=== PATIENT | female | born 1950 | race Caucasian/White ===

== ENCOUNTER 2018-03-29 06:20 | Day surgery (SDC) | payer BC, OTHER ==
[~2018-03-29 06:20] MED LIST: DEXAMETHASONE SOD PHOSPHATE 10 MG INJ EPI ONE
[2018-03-29] MEDS ORDERED: DEXAMETHASONE SOD PHOSPHATE 10 MG INJ IV ONE (06:21)
[2018-03-29] MEDS ORDERED: PROPOFOL 200 MG/20 ML BOTTLE IV ONE (06:21)
[2018-03-29] MEDS ORDERED: IV NORMAL SALINE 1000 ML BAG IV ONE (06:21)
[2018-03-29] MEDS ORDERED: IOHEXOL-240 MG , 50 ML VIAL IV ONE (06:59)
[2018-03-29] MEDS ORDERED: BUPIVACAINE PF 0.5% 30 ML VIAL ONE (06:59)
[2018-03-29] MEDS ORDERED: MIDAZOLAM HCL 2 MG/2 ML VIAL ONE (07:04)
[2018-03-29] MEDS ORDERED: FENTANYL CITRATE 100 MCG/2 ML AMPUL ONE (07:05)
== END 2018-03-29 09:00 | disposition home or self-care (01) ==
LOC: DS 06:20
PROVIDERS: ATTEND Anesthesiology
DX: M53.3 Sacrococcygeal disorders, not elsewhere classified (principal); M76.30 Iliotibial band syndrome, unspecified leg; M47.897 Other spondylosis, lumbosacral region; M79.605 Pain in left leg; M79.604 Pain in right leg; M19.90 Unspecified osteoarthritis, unspecified site; K21.9 Gastro-esophageal reflux disease without esophagitis; I10 Essential (primary) hypertension; E78.5 Hyperlipidemia, unspecified; Z98.42 Cataract extraction status, left eye; Z98.41 Cataract extraction status, right eye; F15.90 Other stimulant use, unspecified, uncomplicated; Z98.890 Other specified postprocedural states
CPT/HCPCS: 20550; 27096; 71045; 76000; 93005; A4663; J1100 ×2; J2250; J3010; J3490 ×2; J7030; J7120; Q9966

== ENCOUNTER 2020-08-23 15:16 | Inpatient (IN) | payer BC, OTHER ==
[~2020-08-23] VITALS: Ht 152.4 cm; Wt 89.4 kg
[2020-08-23] MEDS ORDERED: Z GUARD REMEDY PASTE 57 GM TUBE TOP PRN (21:00)
[2020-08-23 21:17] VITALS: BP 142/54
[2020-08-23] MEDS ORDERED: TRAM50TA2 PO (22:40)
[2020-08-23] MEDS ORDERED: METO-357 PO (22:40)
[2020-08-23] MEDS ORDERED: HYDR-4209 PO (22:40)
[2020-08-23] MEDS ORDERED: POTA10CA43 PO (22:40)
[2020-08-23] MEDS ORDERED: PANT40TA49 PO (22:40)
[2020-08-23] MEDS ORDERED: MONT10TA33 PO (22:40)
[2020-08-23] MEDS ORDERED: SIMV-46 PO (22:40)
[2020-08-23] MEDS ORDERED: TOPI50TA24 PO (22:40)
[2020-08-23] MEDS ORDERED: MAGN500P40 PO (22:40)
[2020-08-23] MEDS ORDERED: MAG355OR18 PO (22:40)
[2020-08-23] MEDS ORDERED: ACET325C7 PO (22:40)
[2020-08-23] MEDS ORDERED: GABA-532 PO (22:40)
[2020-08-23] MEDS ORDERED: LEVO500T90 PO (22:46)
--- NOTE | 2020-08-23 23:00 | NUR ---
Received a 69 yr old female from [facility] to ARU with admitting diagnosis UTI,SEPSIS. AAOx4, able to make needs known. Needs attended. NO SOB noted on RA saturating 98%. Pt is ambulatory, BRP with standby assist. Skin assessment completed, skin intact, no issues noted. No acute distress noted at this moment. Denies any pain/discomfort. Belongings list completed and placed in chart. Oriented pt to the room. Safety measures in place. Dr Bennett aware of patient's admission and he said he will reconcile meds. Dr Story also made aware of patient's admission. Continue with plan of care.
[2020-08-23] MEDS ORDERED: HYDROCODONE/APAP 5-325MG TABLET PO PRN (23:15)
[2020-08-24] MEDS: TRAMADOL HCL 50 MG TABLET PO PRN ×2 (01:11→20:33)
[2020-08-24] MEDS: SIMVASTATIN 20 MG TABLET PO SCH ×2 (01:57→20:19)
[2020-08-24] MEDS ORDERED: SIMVASTATIN 20 MG TABLET ONE (02:00)
--- NOTE | 2020-08-24 02:01 | NUR ---
PT. REQUESTED PM [facility] NOTIFIED MISSIONARY COORDINATOR ADMINISTERED OFF SCHEDULE.
--- NOTE | 2020-08-24 03:00 | NUR ---
Patient c/o lower back pain at 0111, reposition and administer PRN pain meds Tramadol 50 mg prn as ordered, all needs anticipated, reassessed relieved from pain sleeping well call light with in reach. Continue with plan of care.
[2020-08-24 04:00] VITALS: BP 123/60
[2020-08-24 05:34] VITALS: BP 123/60
--- NOTE | 2020-08-24 06:30 | NUR ---
Patient slept well no further c/o pain or distress reported, due meds administered and tolerated well. needs anticipated call light with in reach safety precautions observed all time. Night Report given to am nurse. continue with plan of care
[2020-08-24] MEDS: PANTOPRAZOLE SODIUM 40 MG TABLET.DR PO SCH (06:35)
[2020-08-24] MEDS ORDERED: SIMVASTATIN 20 MG TABLET PO ONE (07:51)
[2020-08-24 08:00] VITALS: BP 130/55
[2020-08-24] MEDS: POTASSIUM CHLORIDE 10 MEQ TAB.PRT.SR PO SCH (08:24)
[2020-08-24] MEDS: GABAPENTIN 100 MG CAPSULE PO SCH ×3 (08:25→17:40)
[2020-08-24] MEDS: TOPIRAMATE 25 MG TABLET PO SCH (08:25)
[2020-08-24] MEDS: levoFLOXacin 500 MG TABLET PO SCH (08:25)
[2020-08-24] MEDS: METOPROLOL SUCCINATE XL 50 MG TAB.SR.24H PO SCH (08:26)
[2020-08-24] MEDS ORDERED: MONTELUKAST SODIUM 10 MG TABLET PO SCH (09:00)
--- NOTE | 2020-08-24 09:45 | NUR ---
Received pt in bed, awake, A&Ox4, able to verbalize needs. No acute distress noted, no SOB. Pt on RA, O2 saturation 96%. VSS. Pt denies pain/discomfort at this time. Due medications given per order, no a/r noted. Assisted pt safely to restroom with FWW. Pt voiding spontaneously. Safety measures in place. Belongings and call light within reach, call light usage reinforced, pt verbalized understanding. Will continue to monitor.
[2020-08-24] MEDS: ACETAMINOPHEN 325 MG TABLET PO PRN (15:00)
[2020-08-24 16:00] VITALS: BP 141/68
--- NOTE | 2020-08-24 18:42 | NUR ---
EOSS: Assisted pt safely to bed from restroom. Pt able to ambulate with FWW, tolerating activity well. Pt denies pain/discomfort at this time. No acute distress, no SOB. Pt on RA, O2 saturation 98%. VSS. All needs met promptly. Safety measures maintained. Call light and belongings within reach. Will endorse care to caustic cresylate shift superintendent nurse.
[2020-08-24 20:37] VITALS: BP 130/45
--- NOTE | 2020-08-24 21:27 | NUR ---
Received pt resting in bed. Assisted to the bathroom using walker, tolerated well. AAO x4. No acute distress noted. C/o 5/10 pain on the back, PRN pain med and other due meds given as ordered. Safety measures maintained. Call light and personal items within reach. Will continue to monitor.
[2020-08-25 04:53] VITALS: BP 113/44
[2020-08-25] MEDS: PANTOPRAZOLE SODIUM 40 MG TABLET.DR PO SCH (06:30)
[2020-08-25 08:00] VITALS: BP 138/47
[2020-08-25] MEDS: levoFLOXacin 500 MG TABLET PO SCH (08:23)
[2020-08-25] MEDS: GABAPENTIN 100 MG CAPSULE PO SCH ×3 (08:23→17:39)
[2020-08-25] MEDS: TOPIRAMATE 25 MG TABLET PO SCH (08:24)
[2020-08-25] MEDS: POTASSIUM CHLORIDE 10 MEQ TAB.PRT.SR PO SCH (08:24)
[2020-08-25] MEDS: METOPROLOL SUCCINATE XL 50 MG TAB.SR.24H PO SCH (08:28)
[2020-08-25] MEDS: ACETAMINOPHEN 325 MG TABLET PO PRN (10:42)
[2020-08-25] MEDS ORDERED: METHYL SALICYLATE/MENTHOL CREAM 28 GM TUBE TOP PRN (13:45)
[2020-08-25 16:33] VITALS: BP 149/63
[2020-08-25] MEDS: MONTELUKAST SODIUM 10 MG TABLET PO SCH (17:51)
--- NOTE | 2020-08-25 19:25 | NUR ---
EOSS: Pt in bed, awake, A&Ox4, able to verbalize needs throughout shift. Pt denies pain/discomfort at this time. No acute distress, no SOB. VSS. Due medications given per order, no a/r noted. All needs met promptly. Pt able to ambulate with FWW. Safety measures and fall precautions maintained. Call light and belongings within reach. Will endorse care to associate consulting engineer nurse.
--- NOTE | 2020-08-25 21:00 | NUR ---
Received pt resting in bed, AAO x4. Patient c/o PRN Pain meds administered as ordered C/o 4/10 pain on the back. Safety measures maintained. Call light and personal items within reach. Will continue to monitor.
[2020-08-25] MEDS: SIMVASTATIN 20 MG TABLET PO SCH (21:12)
[2020-08-25] MEDS: TRAMADOL HCL 50 MG TABLET PO PRN (21:14)
[2020-08-25 22:25] VITALS: BP 131/53
[2020-08-26 06:24] LABS: BASOPHILS % (AUTO) 0.8 % (0.0-2.0); EOSINOPHILS # (AUTO) 0.2 K/uL (0.0-0.7); EOSINOPHILS % (AUTO) 4.1 % (0.0-7.0); HEMOGLOBIN 8.7 g/dL (10.9-14.3); LYMPHOCYTES # (AUTO) 1.3 K/uL (20.0-40.0); LYMPHOCYTES % (AUTO) 22.9 % (20.5-51.5); MEAN CORPUSCULAR HEMOGLOBIN 27.3 uug (24.7-32.8); MEAN CORPUSCULAR HGB CONC 32 g/dL (32.3-35.6); MEAN CORPUSCULAR VOLUME 84.6 fL (75.5-95.3); MONOCYTES # (AUTO) 0.7 K/uL (2.0-10.0); MONOCYTES % (AUTO) 12.1 % (0.0-11.0); NEUTROPHILS # (AUTO) 3.5 K/uL (1.8-8.9); NEUTROPHILS % (AUTO) 60.1 % (38.5-71.5); PLATELET COUNT (AUTO) 367 K/uL (179-408); RED BLOOD CELL COUNT(AUTO) 3.19 MIL/uL (3.63-4.92); WHITE BLOOD COUNT (AUTO) 5.8 K/uL (3.8-11.8)
[2020-08-26] MEDS: PANTOPRAZOLE SODIUM 40 MG TABLET.DR PO SCH (06:43)
[2020-08-26 06:57] LABS: THYROID STIMULATING HORMONE 1.204 mIU/mL (0.358-3.740)
--- NOTE | 2020-08-26 07:04 | NUR ---
Patient slept calm all night no acute distress or discomfort. All needs anticipated safety precautions observed all time bed in lowest position kept clean and dry. Kept call light with in reach. report given to am Shift. Continue with plan of care.
[2020-08-26 07:22] LABS: BILIRUBIN,TOTAL 0.3 mg/dL (0.2-1.0); CREATININE 0.8 mg/dL (0.6-1.3); MAGNESIUM 2.2 mg/dL (1.8-2.4); PHOSPHOROUS 4.3 mg/dL (2.5-4.9); TOTAL PROTEIN, SERUM 6.3 g/dL (6.4-8.2)
[2020-08-26] MEDS: levoFLOXacin 500 MG TABLET PO SCH (08:21)
[2020-08-26] MEDS: GABAPENTIN 100 MG CAPSULE PO SCH ×3 (08:21→17:36)
[2020-08-26] MEDS: METOPROLOL SUCCINATE XL 50 MG TAB.SR.24H PO SCH (08:22)
[2020-08-26] MEDS: TOPIRAMATE 25 MG TABLET PO SCH (08:22)
[2020-08-26] MEDS: POTASSIUM CHLORIDE 10 MEQ TAB.PRT.SR PO SCH (08:22)
[2020-08-26] MEDS: ACETAMINOPHEN 325 MG TABLET PO PRN (08:35)
[2020-08-26 08:41] VITALS: BP 111/48
--- NOTE | 2020-08-26 17:12 | NUR ---
Patient is alert, oriented x4, verbally responsive, no sob, resp even nonlabored, skin warm and dry to touch, ambulatory, needs met timely.
[2020-08-26] MEDS: MONTELUKAST SODIUM 10 MG TABLET PO SCH (17:36)
[2020-08-26 20:00] VITALS: BP 108/42
[2020-08-26] MEDS: SIMVASTATIN 20 MG TABLET PO SCH (20:43)
[2020-08-26] MEDS: TRAMADOL HCL 50 MG TABLET PO PRN (20:44)
--- NOTE | 2020-08-26 21:30 | NUR ---
Received pt resting in bed. AAO x4. No acute distress noted. C/o 5/10 pain on the back, ULTRAM PRN pain medication administered per pt request. All due medications administered. Kept comfortable. Attended to all needs promptly. Safety measures maintained. Call light and personal items within reach. Will continue to monitor.
[2020-08-27 04:00] VITALS: BP 139/61
[2020-08-27] MEDS: PANTOPRAZOLE SODIUM 40 MG TABLET.DR PO SCH (06:08)
[2020-08-27] MEDS: ACETAMINOPHEN 325 MG TABLET PO PRN (06:11)
[2020-08-27 08:00] VITALS: BP 122/53
[2020-08-27] MEDS: POTASSIUM CHLORIDE 10 MEQ TAB.PRT.SR PO SCH (08:06)
[2020-08-27] MEDS: TOPIRAMATE 25 MG TABLET PO SCH (08:06)
[2020-08-27] MEDS: GABAPENTIN 100 MG CAPSULE PO SCH ×2 (08:06→12:54)
[2020-08-27 08:09] VITALS: BP 122/55
[2020-08-27] MEDS: METOPROLOL SUCCINATE XL 50 MG TAB.SR.24H PO SCH (08:09)
--- NOTE | 2020-08-27 13:43 | NUR ---
patient is alert, oriented x4, verbally responsive, no sob,resp even nonlabored, skin warm and dry to touch, patient is ambulatory, with fww, able to do her adls herself, being discharged home, no skin issues noted, belongings are accounted and signed. patient stated she has all her medication at home.
--- NOTE | 2020-08-27 15:20 | NUR ---
patient discharged home, stable condition, assisted to the car safely, discharge instructions given to patient, patient verbalized understanding of it, written instructions given as well, no IV acces on patient, ID band removed, belongings accounted and singed, sent with patient.
== END 2020-08-27 15:20 | disposition home or self-care (01) | DRG 871 ==
PROVIDERS: ADMIT Physical Medicine & Rehabilitation Pain Medicine; ATTEND Physical Medicine & Rehabilitation Pain Medicine
DX: A41.9 Sepsis, unspecified organism (principal); N17.0 Acute kidney failure with tubular necrosis; N39.0 Urinary tract infection, site not specified; I10 Essential (primary) hypertension; G62.9 Polyneuropathy, unspecified; R53.1 Weakness; E78.5 Hyperlipidemia, unspecified; K64.9 Unspecified hemorrhoids; Z90.710 Acquired absence of both cervix and uterus; D64.9 Anemia, unspecified; F32.9 Major depressive disorder, single episode, unspecified; R35.0 Frequency of micturition
CPT/HCPCS: 36415; 82652; 83735; 84100; 84443; 85025